=== PATIENT | male | born 1955 | race Caucasian/White ===

== ENCOUNTER 2023-09-25 00:08 | Emergency (ER) | payer MEDICARE, OTHER, SELFPAY ==
[2023-09-25] VITALS (25 sets, daily range): BP systolic 97–117; BP diastolic 50–70; PULSE 79–106; RESP 15–24; TEMP 36.8; O2SAT 94–97
--- NOTE | ~2023-09-25 | XR_ITS ---
Clinical Indication: Sore throat PA and lateral views of the chest: Comparison: None Findings: The lungs are clear, without evidence of focal consolidation or pleural effusion. Cardiome diastinal silhouette is within normal limits. Bones and soft tissues are unremarkable. Impression: Normal chest. Reviewed, dictated and finalized at location . Impression: Normal chest.
--- NOTE | 2023-09-25 00:10 | ECG_ITS ---
SEE SCANNED COPY FOR CONFIRMED REPORT MTDD
--- NOTE | 2023-09-25 00:18 | ED.GENADULT ---
HPI - General Adult General Chief complaint: Unspecified Stated complaint: sore throat, chest pain Time Seen by Provider: 09/25/23 00:17 Source: patient Mode of arrival: ambulatory Limitations: no limitations History of Present Illness HPI narrative: 68 year old male presents to the Emergency Department complaining of pain in throat. Onset while mowing grass today. Pain goes down to chest. Chest hurts when taking deep breath. No prior history of. No pain with swallowing, but pain in neck. Pain worse laying down sometimes. Onset (ago): hour(s) Location: chest Relieving factors: none Exacerbating factors: none Associated symptoms: denies other symptoms Treatments prior to arrival: none Related Data Allergies Allergy/AdvReac Type Severity Reaction Status Date / Time No Known Allergies Allergy Verified 09/25/23 00:24 Review of Systems Review of Systems: All systems reviewed & are unremarkable except as noted in HPI and below Constitutional: Constitutional: Reports as per HPI Eyes: Eyes: Reports as per HPI ENT: Reports system reviewed and no additional complaints, except as documented, Reports neck pain and Reports sore throat Cardiovascular: Cardiovascular: Reports as per HPI and Reports chest pain Respiratory: Respiratory: Reports as per HPI, Denies cough and Denies dyspnea Gastrointestinal: Gastrointestinal: Reports as per HPI, Denies abdominal pain, Denies diarrhea, Denies nausea and Denies vomiting Genitourinary: Genitourinary: Reports no additional male genitourinary complaints Musculoskeletal: Musculoskeletal: Reports no additional musculoskeletal complaints Integumentary/Breasts: Skin/Breast: Reports system reviewed and no additional complaints, except as docu Neurologic: Reports system reviewed and no additional complaints, except as documented Psychiatric: Psychiatric: Reports no additional psychiatric complaints Endocrine: Endocrine: Reports no additional endocrine complaints Hematologic/Lymphatic: Hematologic/Lymphatic: Reports no additional hematologic/lymphatic complaints Allergic/Immunologic: Allergic/Immunologic: Reports no additional allergic/immunologic complaints Exam Const: General: healthy appearing, comfortable, no acute distress, well developed and alert HENMT: Head: normal to inspection Face/Nose/Sinus: Normal external nose present Face and sinus: normal facial exam Mouth: Yes oropharynx normal and Yes moist mucous membranes Throat: posterior oropharynx normal Eyes: General: appearance normal, both eyes and all related structures Pupils: Equal, round and reactive pupils present EOM: EOMs intact bilaterally Neck: Neck: normal visual inspection and no JVD Chest: Chest palpation & inspection: normal inspection of the chest and normal palpation of entire chest wall Resp: Effort & Inspection: normal respiratory effort Auscultation: clear to auscultation bilaterally Cardio: Jugular venous distension: no JVD Rate: regular rate Rhythm: regular rhythm GI: Inspection: normal to inspection and non-distended GI Palp: No abdominal tenderness and Yes Soft to palpation : General: Yes no CVA tenderness Back/Spine/Pelvis: Back: no CVA tenderness Skin: General skin exam: normal color Neuro: General: patient oriented x3 Cranial nerves: Yes CN's II-XII intact bilaterally Cognition (Neuro): normal cognition Speech: normal speech Motor exam (neuro): 5/5 motor strength present throughout Sensory Exam: normal sensation Extrem: General: normal to inspection and no clubbing, cyanosis or edema Psych: Mental Status: mental status grossly normal Course Course Emergency Course: 68 y/o male presents to the ED c/o sore throat pain. Onset while mowing yard. Pain radiates to chest. No shortness of breath, nausea or diaphoresis. No prior history of. PE: no acute findings CBC: H/H 15.1/42.7, Plt 249; wbc 14.7 with 76 S, 15 L, 7 M CMP: Na 134, K 4.2, Cl 100, CO2 28, Glc 169, BUN 16,
[2023-09-25] MEDS: ASPIRIN 81 MG CHEWABLE TABLET 324 MG PO (00:33)
[2023-09-25] MEDS: NITROGLYCERIN SL 0.4 MG TABLET SUBLINGUAL ×3 (00:38→02:17)
--- NOTE | 2023-09-25 00:40 | PC.NURSE ---
PATIENT MEDICATED PER ORDER, SEE MAR. PATIENT STATES HIS CURRENT PAIN IS 1/10 PRIOR TO TX. POST TREATMENT PATIENT STATES PAIN REMAINS 1/10. VISITOR AT BEDSIDE. RN MONITORING.
[2023-09-25 00:51] LABS: Basophils Absolute Auto 0.05 K/mm3 (0.00-0.10); Basophils Percent Auto 0.3 % (0.0-1.0); Eosinophils Absolute Auto 0.18 K/mm3 (0.02-0.50); Eosinophils Percent Auto 1.2 % (1.0-6.0); Hematocrit 42.7 % (37.0-46.0); Hemoglobin 15.1 g/dL (12.4-15.3); Immature Granulocyte Absolute 0.06 K/mm3 (0.00-0.00); Immature Granulocyte Percent A 0.4 % (0.0-0.0); Lymphocytes Absolute Auto 2.19 K/mm3 (1.10-4.50); Lymphocytes Percent Auto 14.9 % (18.0-42.0); Mean Corpuscular HGB Conc 35.4 g/dL (32-36); Mean Corpuscular Hemoglobin 33.6 pg (27.0-31.0); Mean Corpuscular Volume 94.9 fL (78.0-102.0); Mean Platelet Volume 9.8 fl (8.7-11.0); Monocytes Absolute Auto 1.02 K/mm3 (0.10-0.90); Monocytes Percent Auto 6.9 % (2.0-11.0); Neutrophils Percent Auto 76.3 % (50.0-70.0); Platelet Count Result 249 K/mm3 (150-420); Red Cell Distribution Width 12.4 % (11.6-14.4); White Blood Count 14.7 K/mm3 (4.8-10.8)
[2023-09-25 01:13] LABS: Alanine Aminotransferase 23 U/L (16-63); Albumin Level 3.5 g/dL (3.4-5.0); Alkaline Phosphatase 61 U/L (46-116); Anion Gap 8 mmol/L (4-12); Aspartate Amino Transferase 19 U/L (15-37); Bilirubin,Total 0.6 mg/dL (0.00-1.00); Blood Urea Nitrogen 16 mg/dL (7-18); Carbon Dioxide 28 mmol/L (21-32); Chloride 100 mmol/L (98-108); Estimated CRCL calculation 57 ml/min; Estimated Glomerular Filt Rate > 60; Glucose 169 mg/dL (70-99); Magnesium 1.9 mg/dL (1.8-2.4); Osmolality Calculated 287 mOsm/kg (285-295); Potassium 4.2 mmol/L (3.5-5.1); Sodium 136 mmol/L (136-145); Total Protein 7.4 g/dL (6.4-8.2)
[2023-09-25 01:15] LABS: Troponin I < 4.0 ng/L (0.00-60.4)
[2023-09-25 01:16] LABS: Strep Group A RT-PCR NOT DETECTED (Negative)
[2023-09-25] MEDS: SODIUM CHLORIDE 0.9% IV 1,000 ML 999 ML IV CONT (01:55)
--- NOTE | 2023-09-25 01:57 | PC.NURSE ---
PATIENT MEDICATED PER ORDER, SEE MAR. PATIENT REPORTS PAIN 3/10 PRIOR TO NITRO. AT THIS TIME, POST NITRO PATIENT STATES PAIN IS 1/10. PATIENT SITTING UPRIGHT ON STRETCHER WITHOUT DISTRESS, VISITOR AT BEDSIDE AND IVF INFUSING. CALL LIGHT WITHIN REACH.
--- NOTE | 2023-09-25 02:08 | PC.NURSE ---
PATIENT STATES HIS UPPER CHEST/NECK/THROAT PAIN REMAINS AT A 1/10. CONTINUES TO REPORT PAIN IS OCCURRING ONLY WITH INSPIRATION.
--- NOTE | 2023-09-25 02:18 | PC.NURSE ---
PATIENT MEDICATED WITH THIRD SL NITRO PER ERP ORDER, SEE MAR. PATIENT STATES PAIN IS 1/10 PRIOR TO ADMINISTRATION.
--- NOTE | 2023-09-25 02:21 | PC.NURSE ---
PATIENT REPORTS THE PAIN IS DIFFERENT THAN BEFORE HE RECEIVED THE MEDICATION. WHEN ASKED WHAT NUMBER HIS PAIN WAS, PATIENT STATES A 1/10 . RN NOTED THAT IS THE SAME BEFORE HE RECEIVED THE MEDICATION TO WHICH PATIENT RESPONDED HIS PAIN WAS DIFFERENT .
[2023-09-25] MEDS: NITROGLYCERIN OINTMENT 1 INCH DOSE TRANSDERM (02:50)
--- NOTE | 2023-09-25 03:50 | PC.NURSE ---
PATIENT GIVEN WARM BLANKET PER REQUEST AND LIGHTS DIMMED. AWAITING RESULTS OF REPEAT BLOOD WORK. RN MONITORING. VSS.
[2023-09-25 04:10] LABS: Troponin I < 4.0 ng/L (0.00-60.4)
--- NOTE | 2023-09-25 04:24 | PC.NURSE ---
PATIENT RESTING ON STRETCHER WITHOUT DISTRESS, UPDATE PROVIDED. REPEAT CARDIAC ENZYME NEGATIVE, PHONED AND AWARE. RN AWAITING FURTHER ORDERS/PLAN.
--- NOTE | 2023-09-25 04:25 | PC.NURSE ---
DR. ADKINS AT BEDSIDE TO PRESENT RESULTS AND DISCUSS PLAN WITH PATIENT.
== END 2023-09-25 04:56 | disposition home or self-care (01) ==
PROVIDERS: Emergency Provider Emergency Medicine
DX: R07.89 Other chest pain (principal)
CPT/HCPCS: 36415; 71046; 80053; 83735; 84484; 85025; 87651; 93005; 96360; 99284; A9270; J7030

== ENCOUNTER 2023-09-25 10:10 | Emergency (ER) | payer MEDICARE, OTHER, SELFPAY ==
[2023-09-25] VITALS (7 sets, daily range): BP systolic 100–116; BP diastolic 58–65; PULSE 84–96; RESP 16–20; TEMP 36.8; O2SAT 96–100
--- NOTE | 2023-09-25 10:11 | ECG_ITS ---
SEE SCANNED COPY FOR CONFIRMED REPORT MTDD
[2023-09-25 10:37] LABS: Basophils Percent Auto 0.3 % (0.2-1.2); Eosinophils Absolute Auto 0.1 K/mm3 (0-0.3); Eosinophils Percent Auto 0.8 % (0-4.4); Hemoglobin 14.1 g/dL (14.0-18.0); Immature Granulocyte Absolute 0.06 K/mm3 (0.00-0.031); Immature Granulocyte Percent A 0.5 % (0-0.5); Lymphocytes Absolute Auto 1.87 K/mm3 (0.9-3.2); Lymphocytes Percent Auto 14.3 % (18.3-44.2); Mean Corpuscular HGB Conc 34.4 g/dl (32-36); Mean Corpuscular Hemoglobin 33.5 pg (26-34); Mean Corpuscular Volume 97.4 fl (80-100); Mean Platelet Volume 9.7 fl (7.4-10.4); Monocytes Absolute Auto 0.9 K/mm3 (0.1-0.6); Monocytes Percent Auto 6.9 % (2.6-8.5); Neutrophils Absolute Auto 10.1 K/mm3 (1.3-6.7); Neutrophils Percent Auto 77.2 % (45.5-73.1); Platelet Count Result 219 k/mm3 (150-375); Red Blood Count 4.21 M/mm3 (4.6-6.20); Red Cell Distribution Width 12.9 % (11.5-14.5); White Blood Count 13.1 K/mm3 (4.5-10.0)
[2023-09-25 10:47] LABS: INR 1.1; Prothrombin Time 14.2 Seconds (11.1-14.7)
[2023-09-25 10:48] LABS: Partial Thromboplastin Time 32.5 Seconds (22.3-36.8)
[2023-09-25 10:49] LABS: Alanine Aminotransferase 18 U/L (6-50); Albumin Level 4.3 g/dL (3.5-5.1); Alkaline Phosphatase 52 U/L (38-126); Anion Gap 5 mmol/L (4-12); Aspartate Amino Transferase 25 U/L (17-59); Bilirubin,Total 1.3 mg/dL (0.2-1.3); Blood Urea Nitrogen 11 mg/dL (9-20); Calcium 9.1 mg/dL (8.4-10.2); Carbon Dioxide 26 mmol/L (22-30); Chloride 104 mmol/L (98-107); Estimated Glomerular Filt Rate > 60; Glucose 148 mg/dL (65-110); Lipase 40 U/L (23-300); Sodium 135 mmol/L (137-145)
[2023-09-25 11:01] LABS: Troponin I < 0.012 ng/mL (0.000-0.034)
--- NOTE | 2023-09-25 11:40 | ED.GENADULT ---
HPI - General Adult General Chief complaint: Chest Pain Stated complaint: chest pain Time Seen by Provider: 09/25/23 11:13 History of Present Illness HPI narrative: Patient is a 68-year-old male who presents ER with central chest pain. Began yesterday while mowing the lawn. He felt like he is having a sore throat and felt some achiness in his central chest. He went to [facility] where he had 2 troponin test performed and they were both negative. He did receive some nitro. It may have helped his discomfort in his diagnosed with angina. Patient reports he still has pain when he lays backwards and feels stretching on his chest. No exertional chest pain or shortness of breath coming here. Denies fevers or chills or sweats. Related Data Allergies Allergy/AdvReac Type Severity Reaction Status Date / Time No Known Allergies Allergy Verified 09/25/23 00:24 Review of Systems Review of Systems: All systems reviewed & are unremarkable except as noted in HPI and below Constitutional: Constitutional: Reports no additional constitutional complaints ENT: Reports nasal congestion and Reports sore throat Cardiovascular: Cardiovascular: Reports chest pain, Denies rapid heart rate and Denies radiating jaw, neck or arm pain Respiratory: Respiratory: Reports no additional respiratory complaints Gastrointestinal: Gastrointestinal: Reports no additional gastrointestinal complaints Musculoskeletal: Musculoskeletal: Reports no additional musculoskeletal complaints PMFSH Past Medical History Medical History (Updated 09/25/23 @ 14:40 by Warner Scott MD) Healthy adult male Surgical History Surgical History (Updated 09/25/23 @ 14:36 by Warner Scott MD) No pertinent past surgical history Social History Social History (Updated 09/25/23 @ 14:36 by Warner Scott MD) Social History: retired helicopter technician Exam Narrative: GENERAL: Well-appearing, well-nourished, and in no acute distress. HEAD: Normocephalic, atraumatic. ENT: Mucous membranes moist. CHEST: Clear to auscultation. No respiratory distress. HEART: Regular rate and rhythm. Normal peripheral pulses. ABDOMEN: Soft, nontender, nondistended. EXTREMITIES: Normal range of motion. No edema. SKIN: Warm, dry, no rash. NEURO: Alert and oriented x3. PSYCH: Normal mood and affect. Course Course Emergency Course: Troponins continue to be negative x2. EKG nonischemic. Chest x-ray from last night reviewed. Pain resolved with Toradol. May be experiencing some pleurisy. Will place on b.i.d. naproxen. Strict return precautions given. Vital Signs Vital signs: Vital Signs Temperature 98.3 F 09/25/23 10:30 Pulse Rate 96 09/25/23 10:30 Respiratory Rate 16 09/25/23 10:30 Blood Pressure 115/60 09/25/23 10:30 Pulse Oximetry 98 09/25/23 10:30 Oxygen Delivery Room Air 09/25/23 10:30 Temperature 98.3 F 09/25/23 10:30 Pulse Rate 88 09/25/23 13:44 Respiratory Rate 20 09/25/23 12:45 Blood Pressure 102/61 09/25/23 12:45 Pulse Oximetry 96 09/25/23 12:45 Oxygen Delivery Room Air 09/25/23 11:24 Medical Decision Making Vital Signs Vital Signs: Vital Signs Temperature 98.3 F 09/25/23 10:30 Pulse Rate 96 09/25/23 10:30 Respiratory Rate 16 09/25/23 10:30 Blood Pressure 115/60 09/25/23 10:30 Pulse Oximetry 98 09/25/23 10:30 Oxygen Delivery Room Air 09/25/23 10:30 Temperature 98.3 F 09/25/23 10:30 Pulse Rate 88 09/25/23 13:44 Respiratory Rate 20 09/25/23 12:45 Blood Pressure 102/61 09/25/23 12:45 Pulse Oximetry 96 09/25/23 12:45 Oxygen Delivery Room Air 09/25/23 11:24 Lab Data 09/25/23 10:27 09/25/23 10:27 Labs: Lab Results 09/25/23 09/25/23 09/25/23 Range/Units 10:27 10:28 13:22 WBC 13.1 H (4.5-10.0) K/mm3 RBC 4.21 L (4.6-6.20) M/mm3 Hgb 14.1 (14.0-18.0) g/dL Hct 41.0 L (42.0-52.0) % MCV
--- NOTE | 2023-09-25 13:10 | ECG_ITS ---
SEE SCANNED COPY FOR CONFIRMED REPORT MTDD
[2023-09-25] MEDS: IPRATROPIUM 0.5 MG/ALBUTEROL SULFATE 2.5 MG AMPUL.NEB 3 ML INHALATION (13:46)
[2023-09-25] MEDS: KETOROLAC 30 MG/ML VIAL (*BKC) IV PUSH (13:48)
[2023-09-25 13:51] LABS: Troponin I < 0.012 ng/mL (0.000-0.034)
== END 2023-09-25 14:56 | disposition home or self-care (01) ==
PROVIDERS: Emergency Provider Emergency Medicine
DX: R07.89 Other chest pain (principal); R94.31 Abnormal electrocardiogram [ECG] [EKG]
CPT/HCPCS: 36415; 80053; 83690; 84484; 85025; 85610; 85730; 93005; 94640; 96374; 99284; J1885